=== PATIENT | male | born 1955 | race American Indian/Alaskan Native ===

== ENCOUNTER 2017-05-16 07:33 | Day surgery (SDC) | payer OTHER ==
--- NOTE | 2017-05-16 08:26 | Anesthesia Day of Surgery ---
Anesthesia Day of Surgery - Day of Surgery Patient Examined: Yes Patient H&P Reviewed: Yes Patient is NPO: Yes Beta Blockers: Yes
--- NOTE | 2017-05-16 08:29 | Anesthesia Consultation ---
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
[2017-05-16] MEDS ORDERED: NACL 0.9% 1000 ML 1,000 ML IV SCH (08:30)
[2017-05-16] MEDS ORDERED: WATER FOR IRRIG STERILE IR ONE (08:40)
[2017-05-16] MEDS ORDERED: WATER FOR IRRIG STERILE ONE (08:41)
[2017-05-16] MEDS ORDERED: DIPRIVAN 10 MG/ML IV ONE ×2 (09:15)
--- NOTE | 2017-05-16 09:55 | Short Stay Summary ---
Short Stay Documentation Date of service: 05/16/17 Narrative H&P: The patient presents for surveillance colonoscopy for history of colon polyps. Last study was 7 years ago. - History Past Medical History: diabetes, hypertension, renal failure, stroke Past Surgical History: Other (spinal surgery) Social history: , lives with family - Allergies and Medications Current Medications: Allergies No Known Allergies Allergy (Verified 05/15/17 11:52) Home Medications Medication Instructions Recorded Confirmed Last Taken Type Alpha Lipoic Acid 300 mg PO DAILY 05/15/17 05/15/17 Unknown History Amlodipine-Benazepril 10-20 mg 10 - 40 mg PO DAILY 05/15/17 05/16/17 05/16/17 History Aspirin EC [Aspirin Enteric Coated 81 mg PO QDAY 05/15/17 05/15/17 Unknown History TAB] Cabergoline [Cabergoline] 0.5 mg PO DAILY 05/15/17 05/15/17 Unknown History Doxazosin Mesylate [Cardura] 8 mg PO DAILY 05/15/17 05/16/17 05/15/17 History Doxercalciferol [Doxercalciferol] 0.5 mcg PO DAILY 05/15/17 05/16/17 05/15/17 History Furosemide [Lasix TAB] 40 mg PO QDAY 05/15/17 05/16/17 05/15/17 History Metoprolol Tartrate 25 mg PO DAILY 05/15/17 05/16/17 05/16/17 History Multiple Vitamins For Women 1 tab PO DAILY 05/15/17 05/16/17 05/15/17 History Ubidecarenone [Co Q-10] 200 mg PO DAILY 05/15/17 05/15/17 Unknown History cloNIDine [Catapres] 0.1 mg PO DAILY 05/15/17 05/16/17 05/15/17 History hydrALAZINE [Apresoline] 50 mg PO DAILY 05/15/17 05/16/17 05/16/17 History Coq10 200 mg PO DAILY 05/16/17 05/16/17 05/15/17 History Active Medications Sodium Chloride (Nacl 0.9% 1000 Ml) 1,000 mls @ 50 mls/hr IV DIRECT FANY Last Admin: 05/16/17 08:38 Dose: 50 mls/hr - Physical exam General appearance: no acute distress, well-nourished Integumentary: no rash, no growths, no abnormal pigmentation HEENT: Atraumatic, PERRLA, EOMI, Mucous membr. moist/pink Lungs: Clear to auscultation, Normal air movement Breasts: deferred Heart: Regular rate, Normal S1, Normal S2, No murmurs Gastrointestinal: normoactive bowel sounds, no tenderness, no distended, no masses, no guarding, no organomegaly Male Genitourinary: deferred Rectal Exam: normal exam-external/orifice, normal rectal tone, no mass Extremities: no ischemia, pulses intact, pulses symmetrical, No edema, normal temperature Neurological: Normal gait, Normal speech, Strength at 5/5 X4 ext, Normal tone, Sensation intact, Cranial nerves 3-12 NL - Brief post op/procedure progress note Date of procedure: 05/16/17 Findings: see dictation Estimated blood loss: none Pathology: none Condition: stable - Disposition Condition at discharge: Good Disposition: DC-01 TO HOME OR SELFCARE - Discharge Diagnoses (1) Personal history of colonic polyps Status: Acute Short Stay Discharge Plan Activity: other (no driving for 24 hours) Weight Bearing Status: Full Weight Bearing Diet: diabetic
--- NOTE | 2017-05-16 09:57 | Operative Report ---
Operative Report Operative Report: Date of procedure: 05/16/2017 Preprocedure diagnosis: History of colon polyps, last study 7 years ago. Post procedure diagnosis: Normal colon to the cecum Procedure: Colonoscopy to the cecum Endoscopist: Dr. Bolivar Anesthesia: Monitored anesthesia care per anesthesia department Estimated blood loss: 0 Medications: Monitored anesthesia care. See separate report by anesthesia for details. After careful discussion of the nature and purpose of the procedure as well as details of the technique risks benefits and alternatives the patient gave consent. Please see recent history and physical from the office. The patient was placed in the left lateral decubitus position and medicated per anesthesia. A rectal exam was performed sphincter tone was normal there were no masses palpable. The [employer] 570 scope was passed transanally and advanced under continuous direct vision without difficulty to the cecum. The colon was well prepared. The cecum was normal. The ascending colon was normal and on forward and retroflexed views. The transverse colon, descending colon, and sigmoid colon were normal. The rectum was normal on forward and retroflexed views. The procedure was well-tolerated overall and the patient was observed in recovery. Conclusions: Normal colonoscopy to the cecum. Plan: Repeat colonoscopy in 5 years. Signed electronically: Keanu Bolivar M.D.
[2017-05-16 10:21] VITALS: BP 158/86
--- NOTE | 2017-05-16 10:40 | Post Anesthesia Evaluation ---
- Post Anesthesia Evaluation Patient Participated: Yes Airway Patent: Yes Stable Respiratory Function: Yes Nausea/Vomiting: No Temp > 96.8F: Yes Pain Manageable: Yes Adequeate Hydration: Yes Anesthesia Complications: No
== END 2017-05-16 07:34 | disposition home or self-care (01) ==
LOC: GIO 07:33
PROVIDERS: ATTEND Internal Medicine Gastroenterology
DX: Z09 Encounter for follow-up examination after completed treatment for conditions other than malignant neoplasm (principal); E11.9 Type 2 diabetes mellitus without complications; I12.9 Hypertensive chronic kidney disease with stage 1 through stage 4 chronic kidney disease, or unspecified chronic kidney disease; N18.4 Chronic kidney disease, stage 4 (severe); E66.9 Obesity, unspecified; Z68.33 Body mass index [BMI] 33.0-33.9, adult; Z86.73 Personal history of transient ischemic attack (TIA), and cerebral infarction without residual deficits; Z87.19 Personal history of other diseases of the digestive system; Z98.890 Other specified postprocedural states; Z79.82 Long term (current) use of aspirin; Z79.899 Other long term (current) drug therapy
CPT/HCPCS: 45378; J2704; J7030